=== PATIENT | female | born 1955 | race Caucasian/White ===

== ENCOUNTER → 2017-01-05 | Outpatient (CLI) | payer BC ==
--- NOTE | 2017-01-05 17:24 | MAM ---
History: Well woman exam. Date of exam: 01/05/2017 Services provided: Bilateral full field digital screening mammography. CAD, the images were reviewed with R2 computer aided detection. FINDINGS: Glandular tissue is scattered glandular pattern. Study is compared with 2012 exam. No dominant mass, architectural distortion or clustered microcalcification. Stable glandular pattern since 2012. IMPRESSION: Benign exam Recommendation: Routine annual mammography BIRAD CATEGORY: 2 BENIGN Electronically signed by: Janel Rojo MD 01/05/2017 5:23 PM CDT Workstation: [id number]
== END | disposition home or self-care (01) ==
LOC: MAMMO 08:51
PROVIDERS: ATTEND Family Medicine
DX: Z12.31 Encounter for screening mammogram for malignant neoplasm of breast (principal)

== ENCOUNTER → 2017-03-18 | Outpatient (CLI) | payer BC ==
--- NOTE | 2017-03-18 13:49 | MAM ---
EXAM DESCRIPTION: 3D Diagnostic, Left CLINICAL HISTORY: 61 yearsFemaleDISORDER OF THE BREAST. Pain and lump in the upper outer quadrant of the posterior third of the left breast. Technologist feels ridgelike tissue. COMPARISON: 2-D digital screening bilateral examination 01/05/2017. TECHNIQUE: Left breast full-field 3-D digital tomosynthesis in the MLO and CC projections with synthesized images. FINDINGS: The breast parenchymal density pattern: Scattered fibroglandular densities. Skin marker noted in the area of palpable abnormality. Minimally dense fibroglandular tissue. Small lymph nodes. No focal asymmetry, no mass density, and no abnormal group of microcalcifications. Stable since the prior study December 2016. IMPRESSION: BI-RADS CATEGORY: 2 - BENIGN FINDINGS. FOLLOW UP: Return to routine digital bilateral screening, December 2017. Written communication explaining the findings and follow-up, will be mailed to the patient and referring health care provider. According to the [employer], yearly mammograms are recommended starting at age 40 and continuing as long as a woman is in good health. Any breast change noted on a breast self-exam should be reported promptly to the patient's healthcare provider. Breast MRI is recommended for women with an approximately 20-25% or greater lifetime risk of breast cancer, including women with a strong family history of breast or ovarian cancer and women who have been treated for Hodgkin's disease. A negative mammographic report should not delay tissue diagnosis in patients with significant clinical history or physical findings. Extremely dense breast tissue limits the sensitivity of digital mammography. The results and follow-up were discussed in person with the patient. Written communication explaining the results and followup will be mailed to the patient and referring care provider. Electronically signed by: Camden Silva MD 03/18/2017 1:47 PM CDT
== END ==
LOC: MAMMO 12:47
PROVIDERS: ATTEND Family Medicine
DX: N64.9 Disorder of breast, unspecified (principal)

== ENCOUNTER → 2018-04-12 | Outpatient (CLI) | payer BC ==
--- NOTE | 2018-04-14 11:08 | MAM ---
EXAM DESCRIPTION: 3D Screening BILATERAL : Digital Mammography. CLINICAL HISTORY: 62 years Female SCREENING . No complaints. Remote family history of breast cancer. No personal history. Childbirth. 25 years postmenopausal. Taking HRT 5 or more years ago. Lifetime risk of developing breast cancer (Tyrer-Cuzick model)(%): 4.7 COMPARISON: 2-D digital screening bilateral study 01/05/2017. TECHNIQUE: Bilateral CC and MLO projection full-field images, Digital tomosynthesis mammographic technique. Bilateral digital 2-D full-field MLO images. CAD not utilized. FINDINGS: The breast parenchymal density pattern is: Scattered areas of fibroglandular density. No skin thickening or nipple retraction. Bilateral vascular calcifications. Bilateral stable intramammary circumscribed nodules are stable. Bilateral solitary microcalcifications. No new focal, stellate mass or density, focal asymmetry , and no suspicious microcalcifications bilaterally. Stable mammograms compared to prior study. Taking into account, differences in mammographic technique. IMPRESSION: Benign exam. BIRAD CATEGORY: 2 BENIGN FINDINGS. RECOMMENDATIONS: FOLLOW UP: Routine digital bilateral screening, one year interval from March 2018. Written communication explaining the IMPRESSION and follow-up, will be mailed to the patient and referring health care provider. According to the [employer], yearly mammograms are recommended starting at age 40 and continuing as long as a woman is in good health. Any breast change noted on a breast self-exam should be reported promptly to the patient's healthcare provider. Breast MRI is recommended for women with an approximately 20-25% or greater lifetime risk of breast cancer, including women with a strong family history of breast or ovarian cancer and women who have been treated for Hodgkin's disease. A negative mammographic report should not delay tissue diagnosis in patients with significant clinical history or physical findings. Extremely dense breast tissue limits the sensitivity of digital mammography. Electronically signed by: Camden Silva MD 04/14/2018 11:07 AM CDT
== END ==
LOC: MAMMO 11:00
PROVIDERS: ATTEND Family Medicine
DX: Z12.31 Encounter for screening mammogram for malignant neoplasm of breast (principal)

== ENCOUNTER → 2018-12-29 | Outpatient (CLI) | payer MEDICARE, OTHER | LOC: GMAH 10:14 | PROVIDERS: ATTEND Family Medicine | DX: I10 Essential (primary) hypertension (principal) ==

== ENCOUNTER → 2019-08-15 | Outpatient (CLI) | payer MEDICARE, OTHER ==
--- NOTE | 2019-08-15 20:12 | US ---
US THYROID CLINICAL STATEMENT:64 years Female NONTOXIC SINGLE THYROID NODULE. No palpable mass, no prior thyroid surgery or therapy. COMPARISON: None TECHNIQUE: Transcutaneous scanning, grayscale and Doppler modes. FINDINGS: Size right thyroid lobe: 4.9 x 2.0 x 1.5 cm Size left thyroid lobe: 5.6 x 1.6 x 1.4 cm Size isthmus: 0.4 cm Estimated total number of nodules greater than or equal to 1 cm: 2 Nodule 1: Size: 2.9 x 2.5 x 2.2 cm Location: Left Lower Composition: solid or almost completely solid: 2 points Echogenicity: hypoechoic: 2 points Shape: wider than tall: 0 points Margins: smooth: 0 points Echogenic foci: none: 0 points ACR Total Points: 4; ACR TI-RADS risk category: TR4 - moderately suspicious nodule. Nodule 2: Size: 1.1 x 1.0 x 0. 7 cm Location: Left isthmus Composition: solid or almost completely solid: 2 points Echogenicity: isoechoic: 1 point Shape: wider than tall: 0 points Margins: ill-defined: 0 points Echogenic foci: none: 0 points ACR Total Points: 3; ACR TI-RADS risk category: TR3 - mildly suspicious nodule. Nodule 3: Size: 0.8 x 0.6 and 0.4 cm Location: Right isthmus Composition: solid or almost completely solid: 2 points Echogenicity: hypoechoic: 2 points Shape: wider than tall: 0 points Margins: smooth: 0 points Echogenic foci: none: 0 points ACR Total Points: 4; ACR TI-RADS risk category: TR4 - moderately suspicious nodule. Nodule 4: Size: 0.9 x 0.6 x 0.6 cm Location: Right Mid Composition: solid or almost completely solid: 2 points Echogenicity: hypoechoic: 2 points Shape: wider than tall: 0 points Margins: smooth: 0 points Echogenic foci: none: 0 points ACR Total Points: 4; ACR TI-RADS risk category: TR4 - moderately suspicious nodule. No dominant solid mass or distinct cyst in the surrounding soft tissues. No parenchymal edema. IMPRESSION: 1. Nodule 1: ACR TI-RADS 2017 Category TR4. Recommend: Ultrasound-guided fine needle aspiration. Recommendations based upon [employer] Best Practice recommendations and ACR TI-RADS 2017 guidelines. Please see below*. 2. Nodule 2: ACR TI-RADS 2017 Category TR3. Recommend: No further follow-up. 3. Nodule 3: ACR TI-RADS 2017 Category TR4. Recommend: No further follow-up. 4. Nodule 4: ACR TI-RADS 2017 Category TR4. Recommend: No further follow-up. The soft tissue around the thyroid gland is unremarkable. *ACR TI-RADS 2017 Recommendations for imaging follow-up of nodules: TR1: No FNA or follow up TR2: No FNA or follow up TR3: FNA if >/= 2.5 cm, follow up if 1.5 - 2.4 cm in 1, 3, and 5 years TR4: FNA if >/= 1.5 cm, follow up if 1.0 - 1.4 cm in 1, 2, 3, and 5 years TR5: FNA if >/= 1.0 cm, follow up if 0.5 - 0.9 cm every year for 5 years ACR TI-RADS recommends that no more than two nodules with the highest ACR TI-RADS total point should be biopsied and no more than four nodules should be followed. These recommendations do not apply to patients with increased risk for thyroid cancer or patients with symptomatic thyroid disease. Electronically signed by: Camden Silva MD 08/15/2019 8:10 PM [employer] TECHNICIAN
== END ==
LOC: US 10:30
PROVIDERS: ATTEND Family Medicine
DX: E04.2 Nontoxic multinodular goiter (principal)

== ENCOUNTER → 2019-11-07 | Outpatient (CLI) | payer MEDICARE, OTHER ==
--- NOTE | 2019-11-08 16:34 | MAM ---
EXAM DESCRIPTION: 3D Diagnostic, Bilateral (accession [id number]), Breast,Right (accession [id number]): Ultrasound CLINICAL HISTORY: 64 yearsFemaleABNORMAL MAMMOGRAM enlarging mass density right breast since interval study. Lifetime risk of developing breast cancer (Tyrer-Cuzick model)(%): Not calculated COMPARISON: Bilateral screening digital breast tomosynthesis September 18. Bilateral screening digital breast tomosynthesis March 2018. TECHNIQUE: Bilateral LM projection full-field images, digital tomosynthesis technique. Bilateral 2-D digital full-field images: LM projection CAD available for 2-D images.. Transcutaneous scanning of the right breast utilizing muller-scale and Doppler modes. Scanning performed by the pediatric audiologist ; Dr. Silva observation. FINDINGS: The breast parenchymal density pattern is: Scattered areas of fibroglandular density. No skin thickening or nipple retraction focal asymmetry upper outer quadrant middle third right breast. Bilateral skin mole markers. Bilateral intramammary lymph nodes. Bilateral axillary lymph nodes. Solitary microcalcifications bilaterally. No new focal, stellate mass or density,, and no suspicious microcalcifications bilaterally. Ultrasound: Scanning posterior third lateral and upper outer quadrant right breast. Mostly fatty echotexture with minimal fibroglandular tissues. Hypoechoic object mostly well-circumscribed with eccentric echogenic region. Wider than tall orientation. The entire object measures 7.3 x 6.1 mm and is not vascular. Adjacent material is hypoechoic with posterior acoustic shadowing. Nonvascular. Circumscribed well-defined 2.9 x 7.4 mm cyst in the nearby tissues, with posterior acoustic enhancement and wider than tall orientation. IMPRESSION: Possible lymph node and adjacent fibroglandular tissues. BI-RADS CATEGORY: 3 - PROBABLY BENIGN. Management: Short interval (6-month) follow-up or continued surveillance. The FINDINGS and the FOLLOW-UP plan were reviewed in person with the patient after the examination. Written communication explaining the IMPRESSION and FOLLOW-UP will be mailed to the patient and referring care provider. Electronically signed by: Camden Silva MD 11/08/2019 4:33 PM CDT
== END ==
LOC: MAMMO 11:13
PROVIDERS: ATTEND Family Medicine
DX: R92.8 Other abnormal and inconclusive findings on diagnostic imaging of breast (principal)
CPT/HCPCS: 76641; 77066; G0279

== ENCOUNTER → 2020-06-04 | Outpatient (CLI) | payer MEDICARE, OTHER ==
--- NOTE | 2020-06-05 16:06 | US ---
EXAM DESCRIPTION: Diagnostic Mammo,Right (accession [id number]), Breast,Right (accession [id number]): Ultrasound CLINICAL HISTORY: 64 yearsFemale6 MONTH FOLLOW UP no definite mass but follow-up ultrasound finding right breast.. No complaints in the region of interest. Remote family history of breast or ovarian cancer. Menarche age 10. Childbirth age 17. Menopause age 37. HRT 5 or more years ago. Lifetime risk of developing breast cancer (Tyrer-Cuzick model)(%): 4.4. COMPARISON: Bilateral screening digital breast tomosynthesis September 2019. Diagnostic digital breast tomosynthesis and right breast ultrasound October 2019. TECHNIQUE: Right breast LM and CC projection full-field images, digital tomosynthesis technique. Right breast 2-D digital full-field images: LM and CC projections. CAD available for 2-D images.. Transcutaneous scanning of the right breast utilizing muller-scale and Doppler modes. Scanning performed by the palletizer operator ; observation by Dr. Silva. FINDINGS: Left breast parenchymal density pattern is: Scattered areas of fibroglandular density. No skin thickening or nipple retraction . Focal asymmetry again noted in the posterior third of the right breast in the 8 30-9 30 position, near the posterior chest wall approximately 17 cm from the nipple. Partially circumscribed density again noted. No calcifications associated with this object. Solitary microcalcifications and vascular calcifications elsewhere in the breast. No new focal, stellate mass or density, focal asymmetry , and no suspicious microcalcifications left breast since the prior study Ultrasound: Scanning region of interest left breast.. Hypoechoic tissue in the region of interest but not vascular. Posterior acoustic shadowing. On orthogonal scan, the tissue is elongated which could indicate ducts, fibroglandular tissues, or lymph nodes. Similar appearance on the prior study. No definite fluid. IMPRESSION: BI-RADS CATEGORY: 3 - PROBABLY BENIGN. RECOMMENDATIONS: FOLLOW-UP: Short interval (6-month) diagnostic right breast digital 2-D and tomosynthesis evaluation, directed right breast ultrasound, and routine follow-up breast imaging on the left.. The FINDINGS and the FOLLOW-UP plan were reviewed in person with the patient after the examination. Written communication explaining the IMPRESSION and FOLLOW-UP will be mailed to the patient and referring care provider. Electronically signed by: Camden Silva MD 06/05/2020 4:04 PM NETWOR[employer] COMPUTER CONSULTANT
== END ==
LOC: US 10:30
PROVIDERS: ATTEND Family Medicine
DX: R92.8 Other abnormal and inconclusive findings on diagnostic imaging of breast (principal); R92.1 Mammographic calcification found on diagnostic imaging of breast
CPT/HCPCS: 76641; 77065; G0279

== ENCOUNTER → 2020-06-25 | Outpatient (CLI) | payer MEDICARE, OTHER | LOC: GMA MATASK 14:34 | PROVIDERS: ATTEND Family Medicine | DX: E04.1 Nontoxic single thyroid nodule (principal) ==

== ENCOUNTER → 2020-07-02 | Outpatient (CLI) | payer MEDICARE, OTHER ==
--- NOTE | 2020-07-03 11:22 | US ---
US THYROID CLINICAL STATEMENT:64 years Female NONTOXIC SINGLE THYROID NODULE. COMPARISON: Ultrasound thyroid August 15. Biopsy left thyroid nodule: patient states benign pathology. TECHNIQUE: Transcutaneous scanning, grayscale and Doppler modes. FINDINGS: Size right thyroid lobe: 5.0 x 1.8 x 1.5 cm Size left thyroid lobe: 6.2 x 1.7 x 1.5 cm Size isthmus: 0.56 cm Estimated total number of nodules greater than or equal to 1 cm: 3. Nodule 1: Size: 3.0 x 2.3 x 2.0 cm. 2.9 x 2.5 x 2.2 cm on the prior study. Location: Left Lower Composition: solid or almost completely solid: 2 points Echogenicity: hypoechoic: 2 points Shape: wider than tall: 0 points Margins: smooth: 0 points Echogenic foci: none: 0 points. ACR Total Points: 4; ACR TI-RADS risk category: TR4 - moderately suspicious nodule. Nodule 2: Size: 1.2 x 1.1 x 0.8 cm. 1.1 x 1.0 x 0.7 cm on the prior study. Location: Isthmus left Composition: solid or almost completely solid: 2 points Echogenicity: hypoechoic: 2 points. Isoechoic on the prior study. Shape: wider than tall: 0 points Margins: smooth: 0 points Echogenic foci: none: 0 points ACR Total Points: 4; ACR TI-RADS risk category: TR4 - moderately suspicious nodule. Nodule 3: Size: 1.5 x 0.6 x 0.3 cm. 0.8 x 0.6 x 0.4 cm on the prior study. Location: Isthmus right Composition: spongiform: 0 points. Hypoechoic on the prior study. Echogenicity: hypoechoic: 2 points Shape: wider than tall: 0 points Margins: smooth: 0 points Echogenic foci: none: 0 points ACR Total Points: 2; ACR TI-RADS risk category: TR2 - nonsuspicious nodule. Nodule 4 on the prior study 9 mm; not well seen on this study. Soft Tissues: Circumscribed relatively homogeneous echogenic mass in the subcutaneous adipose layer of the left neck with thin echogenic capsule. Minimal vascularity. 3.2 x 2.8 x 1.3 cm. No fluid component or large calcifications. Tender during scanning. Otherwise bilateral soft tissues are unremarkable. IMPRESSION: 1. Nodule 1: ACR TI-RADS 2017 Category TR4. Need to obtain prior biopsy report and prior imaging if biopsy performed by image guidance, and compare to [facility] thyroid imaging. If same nodule, recommend follow up ultrasound in one year. Recommendations based upon [employer] Best Practice recommendations and ACR TI-RADS 2017 guidelines. Please see below*. 2. Nodule 2: ACR TI-RADS 2017 Category TR4. Recommend: Follow-up ultrasound in 1 year. 3. Nodule 3: ACR TI-RADS 2017 Category TR2. Recommend: No further follow-up. 4. 3.2 cm mass adipose layer of the left neck appearance consistent with lipoma. Tender, but no complex echoes or complications seen. *ACR TI-RADS 2017 Recommendations for imaging follow-up of nodules (baseline study): TR1: No FNA or follow up TR2: No FNA or follow up TR3: FNA if >/= 2.5 cm, follow up if 1.5 - 2.4 cm in 1, 3, and 5 years TR4: FNA if >/= 1.5 cm, follow up if 1.0 - 1.4 cm in 1, 2, 3, and 5 years TR5: FNA if >/= 1.0 cm, follow up if 0.5 - 0.9 cm every year for 5 years ACR TI-RADS recommends that no more than two nodules with the highest ACR TI-RADS total point should be biopsied and no more than four nodules should be followed. These recommendations do not apply to patients with increased risk for thyroid cancer or patients with symptomatic thyroid disease. Electronically signed by: Camden Silva MD 07/03/2020 11:21 AM [facility]
== END ==
LOC: US 09:12
PROVIDERS: ATTEND Family Medicine
DX: E04.2 Nontoxic multinodular goiter (principal)